=== PATIENT | male | born 1980 | race Two or more races ===

== ENCOUNTER 2025-07-09 16:54 | Emergency (ER) | payer MEDICAID, SELFPAY ==
[2025-07-09 17:03] VITALS: BP 116/76; PULSE 99; RESP 19; TEMP 36.6; O2SAT 100; BMI 26.3
--- NOTE | 2025-07-09 19:17 | EDNOTE_ITS ---
ED General RME/HPI General Chief complaint: General Adult/Misc Complain Stated complaint: NEEDS OSTOMY BAG CHANGE/SUPPLIES Time Seen by Provider: 07/09/25 18:08 Arrival date/time: 07/09/25 16:54 RME / HPI RME / HPI narrative: 44-year-old male presents to the ER requesting a change of his colostomy bags as one of them is leaking. Patient was recently discharged from a hospital yesterday after having a partial colectomy secondary to colon cancer. Denies fever, nausea vomiting, abdominal pain. Related Data Allergies Allergy/AdvReac Type Severity Reaction Status Date / Time No Known Allergies Allergy Verified 07/09/25 16:56 ED Exam Narrative Physical exam: Constitutional: Vital Signs Reviewed. Well appearing. No acute distress. Not toxic appearing. Head: Normocephalic, atraumatic. Eyes: Conjunctiva clear. ENT: Mucous membranes moist. Neck: Trachea midline. Normal range of motion. No nuchal rigidity. Abdomen: Well healed scars noted. Non distended. Soft, NTTP through out. 2 stomas noted to lower abdominal region with pink granulation tissue. No erythema, discharge, induration noted on or adjacent to stomas. Respiratory: Normal effort. No respiratory distress or accessory muscle use. Neuro: Alert and oriented. Speech normal. No focal gross motor or sensory deficits observed. Skin: Warm, dry, normal color. Psych: Pleasant. Normal affect. Cooperative. Course Course Course Narrative: Patient presents for colostomy bag change as he had some leaking around one of them. Patient's 2 colostomy bags are actively collecting brown stool. No nausea vomiting or peritoneal signs to suggest acute obstruction. Patient denies any fever and doubt any postoperative infection or abscess collection. Patient was given new colostomy bags and it is draining appropriately, patient advised to follow-up with the surgeon in 2 days and strict ER return precautions advised. Quality Measures none Reevaluation(s) Reevaluation #1: At the time of reassessment, the patient remains alert and oriented ?3 with GCS 15. Vitals are normal, pain is controlled, and the patient is tolerating oral intake without nausea or vomiting. The patient is agreeable to discharge and verbalizes understanding of the diagnosis, studies, treatment plan, medications (including side effects/precautions), and strict ER return precautions as discussed in the ED. All concerns were addressed, and the patient is comfortable with the plan. Vital Signs Vital signs: Vital Signs Temperature 97.8 F 07/09/25 17:03 Pulse Rate 99 07/09/25 17:03 Respiratory Rate 19 07/09/25 17:03 Blood Pressure 116/76 07/09/25 17:03 Pulse Oximetry (%) 100 07/09/25 17:03 Oxygen Delivery Method Room Air 07/09/25 17:03 Discharge Plan Plan Patient Disposition: HOME (Self Care) Discharge Disposition comment: Follow up with your primary medical doctor and general surgeon within 48 hours. Return to the Emergency Room immediately for any new, worsening, continuing symptoms or any concerns at all. Return to the Emergency Room within 48 hours if you are unable to follow up with your primary medical doctor and general surgeonwithin 48 hours. Patient condition on transfer: Stable Prescriptions/Referrals Referrals: No Primary/Family,Physician [Primary Care Provider] - In 1 week Problem List Clinical Impression: Colostomy care Patient/Caregiver Discharge Instructions Print Language: [place] Stand Alone Forms: [employer] Award Info., Patient Portal Info Letter
--- NOTE | 2025-07-09 19:49 | PC.NURSE ---
BOTH OSTOMY BAGS WERE CHANGED, PT NOT IN PAIN AT THIS TIME
== END 2025-07-09 19:51 | disposition home or self-care (01) ==
PROVIDERS: Emergency Provider Emergency Medicine
DX: K94.03 Colostomy malfunction (principal); Y83.2 Surgical operation with anastomosis, bypass or graft as the cause of abnormal reaction of the patient, or of later complication, without mention of misadventure at the time of the procedure
CPT/HCPCS: 99281